=== PATIENT | male | born 1965 | race Caucasian/White ===

== ENCOUNTER → 2023-07-09 12:20 | Outpatient (CLI) | payer OTHER, SELFPAY ==
--- NOTE | ~2023-07-09 | MR_ITS ---
EXAMINATION: MR brain/brain stem wo con DATE: 07/09/2023 13:06 INDICATION: Temporary loss of memory. TECHNIQUE: Magnetic resonance imaging (MRI) of the brain and brainstem was performed without intraven ous contrast. COMPARISON: None. FINDINGS: There are scattered areas of nonspecific increased T2-weighted signal intensity in the cere bral white matter. There is no intracranial hemorrhage, acute infarction, or abnormal intracranial ma ss lesion. The ventricles are normal in size. There is a mucous retention cyst in right maxillary sin us. The mastoid air cells are normal. The orbits are normal. IMPRESSION: 1. Mild nonspecific cerebral white matter disease, which likely represents chronic small vessel ische heather disease. Reviewed, dictated and finalized at location E. IMPRESSION: 1. Mild nonspecific cerebral white matter disease, which likely represents activities attendant melany small vessel ischemic disease.
== END ==
PROVIDERS: PCP Nurse Practitioner Family; Visit Provider Nurse Practitioner Family
DX: R41.3 Other amnesia (principal); R90.82 White matter disease, unspecified
CPT/HCPCS: 70551